=== PATIENT | female | born 1945 | race Caucasian/White ===

== ENCOUNTER 2021-04-11 09:41 | Emergency (ER) | payer MEDICARE, OTHER ==
[~2021-04-11] VITALS: Ht 154.9 cm; Wt 56.8 kg
[~2021-04-11 09:41] MED LIST: ASPI-1265 PO; CHOL2000 PO; ESCI-8 PO; LATA2.5D14 TOP; LORA0.5T PO; LOSA100T57 PO; MELA3TAB39 PO; NITR0.4T51 SL; OMEP-84 PO; SIMV80TA2 PO; UBID100C45 PO; [UNRECOGNIZED DRUG - CODE] PO
[2021-04-11 10:17] LABS: BASOPHILS % (AUTO) 0.8 % (0-1); EOSINOPHILS # (AUTO) 0.1 X10'3 (0-0.9); HEMOGLOBIN 13.8 g/dl (12.0-16.0); LYMPHOCYTES % (AUTO) 31.3 % (21-51); MEAN CORPUSCULAR HEMOGLOBIN 31.5 PG (27.0-31.0); MEAN CORPUSCULAR HGB CONC 33.6 g/dL (33.0-36.5); MEAN CORPUSCULAR VOLUME 93.9 FL (78-98); MEAN PLATELET VOLUME 8.5 FL (7.4-10.4); MONOCYTES # (AUTO) 0.3 X10'3 (0-0.9); MONOCYTES % (AUTO) 8.6 % (2-12); NEUTROPHILS # (AUTO) 1.8 X10'3 (1.8-7.7); NEUTROPHILS % (AUTO) 55.3 % (42-75); PLATELET COUNT 189 X10'3 (140-440); RED BLOOD COUNT 4.36 X10'6 (4.20-5.60); RED CELL DISTRIBUTION WIDTH 15.2 % (11.5-14.5); WHITE BLOOD COUNT 3.3 X10'3 (4.5-11.0)
[2021-04-11 10:29] LABS: ALANINE AMINOTRANSFERASE 17 U/L (12-78); ALBUMIN 3.6 G/DL (3.4-5.0); ALKALINE PHOSPHATASE 64 IU/L (46-116); ANION GAP 10 (8-16); ASPARTATE AMINO TRANSFERASE 22 U/L (10-37); BILIRUBIN,TOTAL 0.8 MG/DL (0.1-1.0); BLOOD UREA NITROGEN 14 MG/DL (7-18); BUN/CREATININE RATIO 18.7 (6.6-38.0); CALCIUM 9.5 MG/DL (8.5-10.1); CHLORIDE 107 MMOL/L (99-107); CREATININE 0.75 MG/DL (0.40-0.90); GLUCOSE 109 MG/DL (70-104); SODIUM 144 MMOL/L (135-145); TOTAL CARBON DIOXIDE 27.3 MMOL/L (24-32); TOTAL PROTEIN 7.1 G/DL (6.4-8.2); eGFR 75 ML/MIN
[2021-04-11 10:58] VITALS: BP 139/65
== END 2021-04-11 10:59 | disposition home or self-care (01) ==
LOC: ER 09:42
DX: I10 Essential (primary) hypertension (principal); R07.89 Other chest pain; R06.02 Shortness of breath; Z85.3 Personal history of malignant neoplasm of breast; Z90.710 Acquired absence of both cervix and uterus; Z98.890 Other specified postprocedural states; Z72.89 Other problems related to lifestyle; Z88.2 Allergy status to sulfonamides; Z88.6 Allergy status to analgesic agent; Z88.8 Allergy status to other drugs, medicaments and biological substances; Z79.82 Long term (current) use of aspirin; Z79.899 Other long term (current) drug therapy
CPT/HCPCS: 36415; 71045; 80053; 83880; 84484; 85025; 93005; 99285

== ENCOUNTER 2025-05-12 15:05 | Emergency (ER) | payer MEDICARE, OTHER ==
[~2025-05-12] VITALS: Ht 157.5 cm; Wt 63.8 kg
[~2025-05-12 15:05] MED LIST changes: -LOSA100T57 PO; +LOSA100T58 PO
[2025-05-12 15:14] VITALS: BP 153/106; PULSE 87; RESP 17; O2SAT 96
--- NOTE | 2025-05-12 15:25 | Physician Documentation ---
History of Present Illness ~ Chief Complaint: Mechanical Fall Stated Complaint: FALL HEAD LAC NO THINNERS Time Seen by MD: 16:43 Primary Medical Doctor: RADHA COLE Source: patient Mode of Arrival: POV Exam Limitations: no limitations HPI 80-year-old female with complaints of fall injury occipital head laceration no loss of consciousness denies blood thinners. Tetanus within 5 Years?: No Medication Reconciliation Allergies: Coded Allergies: Sulfa (Sulfonamide Antibiotics) (Verified Allergy, Intermediate, 05/12/25) acetaminophen (Verified Allergy, Unknown, 04/11/21) hydrocodone (Verified Allergy, Unknown, 05/12/25) Scheduled Aspirin (Aspirin), 162 MG PO HS, (Reported) Calcium Carbonate/Vitamin D3 (Sm Calcium 600 + Vit D Tablet), 500 MG PO BID, (Reported) Cholecalciferol (Vitamin D3) (Vitamin D-3), 2,000 UNIT PO QAM, (Reported) Escitalopram Oxalate (Escitalopram Oxalate), 1 TABLET PO DAILY, (Reported) Lorazepam* (Ativan*), 1 TABLET PO DAILY, (Reported) Losartan Potassium (Losartan Potassium), 100 MG PO QAM, (Reported) Melatonin (Melatonin), 1 TABLET PO HS, (Reported) Omeprazole* (Prilosec*), 20 MG PO DAILY, (Reported) Simvastatin* (Zocor*), 80 MG PO HS, (Reported) Ubidecarenone (Co Q-10), 100 MG PO QAM, (Reported) Scheduled PRN Nitroglycerin SL* (Nitrostat SL*), 1 TAB SL Q5MIN PRN for Chest pain Q5min PRNx3-call MD, (Reported) Miscellaneous Medications Latanoprost (Latanoprost), 1 DROP TOP, (Reported) Past Medical History Past Medical History: Hypertension, Breast Cancer Past Surgical History: hysterectomy, orthopedic surgeries, other Other Past Surgical History: mastectomy Patient History: (CAD) Coronary arteriosclerosis FATHER (DM Type 2) Diabetes mellitus type 2 MOTHER Alcohol Use: Occasionally Lives with: Spouse Lives In: Home Physical Exam Vital Signs: Heart Rate: 87, Respiratory Rate: 17, BP: 153/106, Pulse Oximetry: 96, Weight: 63.800 Oxygen Flow Rate: 0 Physical Exam General: Alert, no apparent distress. HEENT: PERRL, EOMI, no injection, moist mucous membranes. Notable laceration on the posterior aspect of the scalp proximally six cm, bleeding currently controlled Neck: Full range of motion. Respiratory: Lungs clear, no respiratory distress. Cardiovascular: Regular rate and rhythm, no murmurs. Neurologic: Oriented x4. Psychiatric: Normal mood and affect. Skin: Normal color, warm and dry. No edema, no ecchymosis. General Appearance: alert, WD/WN, no apparent distress Head: lacerations, tenderness Head Approximately 4 cm long vertical laceration to the occipital region bleeding controlled Face: normal Eye Lid: normal inspection Procedures Laceration Repair : Margins: revised Wound Repaired With: kristine Number of Superficial Sutures: 8 Tolerated Procedure Well?: yes, no complications Progress Results/Orders Results/Orders Completed Orders - DERIK GUERRA NP Lidocaine/Epi/Tetracaine Top (Lidocaine/ (05/12/25 17:10) Vital Signs 05/12/25 15:14 Pulse 87 Resp 17 B/P (MAP) 153/106 Pulse Ox 96 O2 Flow Rate 0 Medical Decision Making Findings This patient's CT does not show any signs of in the intracranial processes. However she did have a notable laceration on the posterior aspect of her scalp. I was able to approximate this with kristine after irrigation. Differential Dx:Considerations: Include: Closed head injury, Cardiac injury, Fracture(s), Intraabdominal injury, Pneumothorax, Cerebral contusion, Pulmonary contusion, Spine injury, Tracheal injury, Urological injury, Vascular injury, Abrasion(s), Contusion(s), Foreign body(s), Hematoma(s), Laceration(s), Encephalopathy, Other Departure Disposition: 01 HOME / SELF CARE / HOMELESS Impression: Primary Impression: Fall Additional Impression: Laceration Condition: Stable Discharge Instructions: Fall Prevention in the Home, Adult, [id number] Additional Instructions: have kristine removed in 7- 10 days Referrals: NO PRIMARY CARE PROVIDER (PCP) Education Educated: Patient Educated regarding: diagnosis Signature Scribe Signature: f Attestation: Scribed for Derik Guerra Injection Maintenance Technician by Derik Marti NP . 05/13/25 18:10 REUBEN FUENTES NP May 12, 2025 15:25 DERIK GUERRA NP May 12, 2025 18:02
[2025-05-12] MEDS: LIDOcaine/epinephrine/tetracaine TOPICAL sol 3 ML syringe TOP ONE (17:31)
--- NOTE | 2025-05-12 18:37 | RADIOLOGY REPORT ---
CT CT HEAD Indication: FALL/HS EXAM DATE: 05/12/2025 04:43 PM COMPARISON: None TECHNIQUE: CT of the head without intravenous contrast. RADIATION DOSE: CTDIvol: 51 mGy, DLP: 879 mGy*cm FINDINGS: There is no intracranial hemorrhage. There is no extra-axial fluid, mass, mass effect or midline shif t. The ventricles are midline and normal in size. Basilar cisterns are patent. There are [id number] rate periventricular and subcortical white matter chronic microvascular ischemic changes. Mild globa l cerebral volume loss. Mastoids well pneumatized. Large left maxillary sinus mucosal retention cyst / polyp measuring 2.8 cm .. Imaged portion of the orbits are unremarkable. Parietal scalp hematoma / laceration. IMPRESSION: 1. No intracranial hemorrhage or mass effect. 2. [id number] chronic microvascular ischemic changes. 3. Mild global cerebral volume loss. 4. Parietal scalp hematoma / laceration.
== END 2025-05-12 18:24 | disposition home or self-care (01) ==
LOC: ER 15:06
DX: S01.01XA Laceration without foreign body of scalp, initial encounter (principal); E11.9 Type 2 diabetes mellitus without complications; I10 Essential (primary) hypertension; I25.10 Atherosclerotic heart disease of native coronary artery without angina pectoris; Z85.3 Personal history of malignant neoplasm of breast; Z88.2 Allergy status to sulfonamides; Z88.5 Allergy status to narcotic agent; Z90.710 Acquired absence of both cervix and uterus; Z79.82 Long term (current) use of aspirin; W19.XXXA Unspecified fall, initial encounter; Y93.89 Activity, other specified; Y92.89 Other specified places as the place of occurrence of the external cause; Y99.8 Other external cause status
CPT/HCPCS: 12002; 70450; 99284